=== PATIENT | male | born 1975 | race Asian ===

== ENCOUNTER 2022-10-17 08:58 | Outpatient (CLI) | payer BC | END 2022-10-17 08:59 | disposition home or self-care (01) | LOC: CSHULT 08:58 | PROVIDERS: ATTEND Student in an Organized Health Care Education/Training Program | DX: B18.1 Chronic viral hepatitis B without delta-agent (principal); K82.4 Cholesterolosis of gallbladder | CPT/HCPCS: 76705 ==